=== PATIENT | male | born 2005 | race Caucasian/White ===

== ENCOUNTER 2024-05-25 00:43 | Emergency (ER) | payer MEDICAID ==
[2024-05-25 00:50] VITALS: PULSE 58; O2SAT 98
== END 2024-05-25 01:00 | disposition left against medical advice (07) ==
LOC: ER 00:43
DX: R10.9 Unspecified abdominal pain (principal); R11.2 Nausea with vomiting, unspecified; Z53.21 Procedure and treatment not carried out due to patient leaving prior to being seen by health care provider